=== PATIENT | male | born 1980 | race Caucasian/White ===

== ENCOUNTER → 2024-03-04 15:05 | Outpatient (REF) | payer OTHER, SELFPAY | LOC: RAD 15:05 | PROVIDERS: ATTENDING PHYSICIAN Family Medicine; OTHER PHYSICIAN Chiropractor | DX: M54.2 Cervicalgia (principal); M54.50 Low back pain, unspecified | CPT/HCPCS: 72040; 72072; 72100 ==

== ENCOUNTER → 2025-04-16 08:07 | Outpatient (REF) | payer SELFPAY | LOC: DHSLP 08:07 | PROVIDERS: ATTENDING PHYSICIAN Family Medicine | DX: G47.33 Obstructive sleep apnea (adult) (pediatric) (principal) | CPT/HCPCS: 95800 ==